=== PATIENT | male | born 1980 | race African-American/Black ===

== ENCOUNTER 2021-03-16 06:17 | Inpatient (IN) | payer OTHER ==
[~2021-03-16] VITALS: Ht 175.3 cm; Wt 83.0 kg
[~2021-03-16 06:17] MED LIST: BENADRYL ALLERG25 MG PO
[2021-03-16 06:25] VITALS: BP 125/77
[2021-03-16] MEDS ORDERED: NOHOMEMEDICATIONS (06:30)
[2021-03-16 06:53] LABS: ABSOLUTE NEUTROPHILS 3.1 thou/uL (1.4-8.2); BASOPHILS 0.9 % (0.0-2.0); EOSINOPHILS 0.2 % (0.0-3.0); HEMATOCRIT 36.2 % (42.0-52.0); HEMOGLOBIN 11.1 gm/dL (14.0-18.0); LYMPHOCYTES 24.9 % (24.0-44.0); MCH 21.3 pg (26.0-34.0); MCHC 30.7 g/dL (28.0-37.0); MCV 69.6 fL (80.0-100.0); MONOCYTES 15.6 % (1.0-8.0); PLATELET COUNT 565 thou/uL (150-400); POLYS 58.4 % (36.0-66.0); RBC 5.21 mil/uL (4.50-6.00); RDW 18.7 % (10.5-14.5); WBC 5.3 thou/uL (4.0-11.0)
--- NOTE | 2021-03-16 07:09 | NUR ---
TOOK OVER CARE FROM MARIA DE JESUS ZAVALA AT THIS TIME
[2021-03-16 07:11] LABS: ANION GAP 8 mmol/L (7-16); BUN 10 mg/dL (7-18); CALCIUM 8.7 mg/dL (8.5-10.1); CHLORIDE 104 mmol/L (98-107); CO2 31 mmol/L (21-32); CREATININE 1.4 mg/dL (0.7-1.3); GLUCOSE 131 mg/dL (74-106); POTASSIUM 3.9 mmol/L (3.5-5.1); SODIUM 143 mmol/L (136-145)
[2021-03-16 07:21] LABS: ALBUMIN 3.2 g/dL (3.4-5.0); SGOT 49 U/L (15-37); SGPT 49 U/L (16-63); TOTAL BILIRUBIN 0.5 mg/dL (0.2-1.0); TOTAL PROTEIN 8.1 g/dL (6.4-8.2); TROPONIN-I <0.06 ng/mL (<0.06)
--- NOTE | 2021-03-16 09:30 | EKG ---
[address] [address] ELECTROCARDIOGRAM REPORT Name: JULIO SORENSON Room #: [facility]#: [id number] Admission: 03/16/21 Attend Phys: Discharge: Date of : 78 Report #: [id number] [facility] ED Test Date: 2021-03-16 Test Time: 06:37:01 Pat Name: JULIO SORENSON Department: Room: Gender: M Manager Treasury: CARLOS ALBERTO : 1980 Requested By: Baudilio Jimenez Order Number: [id number] MD: Yuniel Panchal Measurements Intervals [place] Rate: 101 P: 69 NM: 130 QRS: 71 QRSD: 102 T: 1 QT: 343 QTc: 445 Interpretive Statements Sinus tachycardia Nonspecific T wave abnormalities No previous ECG available for comparison Electronically Signed On 03-16-2021 9:30:07 CDT by Yuniel Panchal [email or web address] <ELECTRONICALLY SIGNED> By: Yuniel Panchal MD 03/16/21 0930 0637 [id number] Yuniel Panchal MD /EPI
[2021-03-16 10:20] LABS: OVALOCYTES 1+; TARGET CELLS FEW
[2021-03-16 10:29] LABS: ANISOCYTOSIS 2+; MICROCYTES 3+; SCHISTOCYTES FEW
[2021-03-16 10:30] LABS: HYPOCHROMASIA 3+
[2021-03-17 05:45] LABS: HEMATOCRIT 32.3 % (42.0-52.0); HEMOGLOBIN 9.8 gm/dL (14.0-18.0); MCH 21.2 pg (26.0-34.0); MCHC 30.3 g/dL (28.0-37.0); MCV 70.1 fL (80.0-100.0); RBC 4.61 mil/uL (4.50-6.00); RDW 18.7 % (10.5-14.5); WBC 4.6 thou/uL (4.0-11.0)
[2021-03-17 05:55] LABS: ALBUMIN 2.8 g/dL (3.4-5.0); ANION GAP 7 mmol/L (7-16); BUN 12 mg/dL (7-18); CALCIUM 8.4 mg/dL (8.5-10.1); CHLORIDE 109 mmol/L (98-107); CO2 28 mmol/L (21-32); CREATININE 1.1 mg/dL (0.7-1.3); DIRECT BILIRUBIN < 0.1 mg/dL (<0.1-0.2); GLUCOSE 103 mg/dL (74-106); PHOSPHORUS 3.7 mg/dL (2.6-4.7); POTASSIUM 4.3 mmol/L (3.5-5.1); SGOT 72 U/L (15-37); SGPT 89 U/L (16-63); SODIUM 144 mmol/L (136-145); TOTAL BILIRUBIN 0.4 mg/dL (0.2-1.0); TOTAL PROTEIN 7.1 g/dL (6.4-8.2)
--- NOTE | 2021-03-17 06:00 | HC ---
[facility] [place] [address] CONSULTATION Name: JULIO SORENSON Room #: 170-6 ADM IN M.R.#: [id number] Admission: 03/16/21 Attend Phys: Juju Godinez MD Discharge: Date of : 78 Report #: [id number] THIS REPORT FOR: cc: FAM - No family physician/PCP FAM - No family physician/PCP César Hernandes MD ~ DATE OF SERVICE: 03/16/2021 INFECTIOUS DISEASE CONSULTATION ATTENDING PHYSICIAN: Dr. Godinez. REASON FOR EVALUATION: COVID-19 infection, complicated by pneumonitis, respiratory failure. HISTORY OF PRESENT ILLNESS: Chart reviewed and the patient was examined. This is a 40-year-old gentleman without significant medical history, who has been ill for roughly 10-11 days, noted to have a positive COVID testing, initially developed headaches, subsequently had some dyspnea, cough has been a prominent sign as well. Denies significant GI related complaints. However, the course of the last 12-24 hours had developed increasing difficulties breathing, in particular with any exertion. Evaluation in the ER noted patchy infiltrates, mildly elevated D-dimer prompted CT of the chest, which showed no evidence of pulmonary embolus. CBC showed anemia, notable in otherwise young man of 11.1, platelet count of 565, slightly elevated creatinine of 1.4. He was started empirically on ceftriaxone and azithromycin. ALLERGIES: LISTED TO PENICILLIN AND DOXYCYCLINE. CURRENT MEDICATIONS: Include dexamethasone, azithromycin, ceftriaxone, enoxaparin, p.r.n. acetaminophen. SOCIAL HISTORY: Denies any significant social history. FAMILY HISTORY: Available in chart. REVIEW OF SYSTEMS: Otherwise, unremarkable. PHYSICAL EXAMINATION: GENERAL: He is alert, cooperative. He is in moderate distress. LUNGS: Bilateral scattered crackles. HEART: Regular, tachycardic. I do not appreciate murmur. ABDOMEN: Soft, nontender. EXTREMITIES: No cyanosis. GENITOURINARY AND RECTAL: Deferred. [facility] [address] [place] [address] CONSULTATION Name: JLUIO SORENSON Room #: 1706 ADM IN [facility]#: [id number] Admission: 03/16/21 Attend Phys: Juju Godinez MD Discharge: Date of : 78 Report #: [id number] LABORATORY DATA: CBC: White count of 5.3, H and H 11.1 and 36.2, MCV is 69.6, may be of thalassemia, platelet count of 565. CT chest, no PE, patchy bilateral multifocal airspace infiltrates. D-dimer 0.37. Electrolytes: Sodium 143, potassium 3.9, chloride 104, bicarbonate 31, anion gap of 8, BUN and creatinine 10 and 1.4, AST 49, ALT of 49, albumin 3.2, total protein of 8.1, estimated GFR of 68. ASSESSMENT AND PLAN: COVID-19 pneumonia, complicated by pneumonitis and respiratory failure in the setting of a mesh in his perhaps chronic, but certainly Microcytic anemia. It is unclear if he has some underlying issue. So, at this point, may need evaluation. We will continue empiric therapy directed against coronavirus. We will add remdesivir, ivermectin, Actemra in addition to vitamins. He is on empiric therapy for possible secondary bacterial pneumonia given the duration of therapy, certainly could be a complication, remains somewhat tenuous. Continue to monitor expectantly. Oxygen therapy as required. <ELECTRONICALLY SIGNED> By: César Hernandes MD 03/17/21 0600 0939 00 César Hernandes MD /nt
[2021-03-17 13:10] LABS: % SATURATION 19 % (20-39); IRON 56 ug/dL (65-175); TIBC 298 ug/dL (250-450)
[2021-03-17 17:27] VITALS: BP 127/79
--- NOTE | 2021-03-17 17:31 | NUR ---
40-year-old male without significant past medical history presented to the ED on 03-16-21 for evaluation of difficulty breathing. Patient states that 11 days prior he was diagnosed with Covid and states that he has been having worsening difficulty breathing over the last few days. The patient has been admitted for: COVID-19 infection complicated by pneumonitis and respiratory failure/microcytic anemia/elevated LFTs likely secondary to coronavirus/malnutrition with hypoalbuminemia. Per ED Triage assessment listed as not vaccinated. The patient is down from 3 to 2 bo via ND. Per assessment and MD notes the patient remains A& O x4. The patient list Naomi Hermosillo as next of kin at [phone]. As plan of care and assessments by MD team are completed CM will follow for discharge needs.
[2021-03-17 17:58] VITALS: BP 124/80
[2021-03-17 19:45] VITALS: BP 122/80
[2021-03-17 19:55] LABS: FOLIC ACID 14.5 ng/mL (8.6-58.9)
[2021-03-17 21:26] LABS: HEMATOCRIT 36.2 % (42.0-52.0); HEMOGLOBIN 10.6 gm/dL (14.0-18.0)
[2021-03-18 00:10] VITALS: BP 116/82
[2021-03-18 05:31] VITALS: BP 110/78
[2021-03-18 05:58] LABS: ALBUMIN 2.8 g/dL (3.4-5.0); CALCIUM 8.2 mg/dL (8.5-10.1); CREATININE 0.7 mg/dL (0.7-1.3); DIRECT BILIRUBIN 0.1 mg/dL (<0.1-0.2); PHOSPHORUS 3.9 mg/dL (2.5-4.9); TOTAL BILIRUBIN 0.5 mg/dL (0.2-1.0); TOTAL PROTEIN 6.6 g/dL (6.4-8.2)
[2021-03-18 05:59] LABS: POTASSIUM 5.8 mmol/L (3.5-5.1)
--- NOTE | 2021-03-18 06:01 | NUR ---
PT ARRIVED FROM ER VIA CART, PLACED IN ROOM 360. ADMISSION ASSESSMENTS COMPLETED. ARRIVED ON O2 AT 3L PER NC. PT REPORT SOA W/ACTIVITY. IS ABLE TO SPEAK IN FULL SENTENCES WITHOUT SIGNIFIANT SOA. CONTINUE TO MONITOR.
[2021-03-18 07:42] VITALS: BP 131/87
[2021-03-18 11:38] VITALS: BP 135/89
--- NOTE | 2021-03-18 15:04 | NUR ---
INITIAL ASSESSMENT/DISCHARGE NOTE: SW reviewed chart and spoke with nursing and attending physician. Pt was admitted due to COVID. Pt placed in Enhanced Isolation. Pt has not received a COVID vaccine. Pt is afebrile and on room air. Per physicians, pt is medically stable to discharge home today. SW spoke with pt via phone. Introduced role of SW. Pt is alert/orientated x 4. Pt lives at home. Pt is normally independent with ADLs an does not use any DME. Pt states he has a PCP, but does not the physician's name, as his regular PCP just retired and is being assigned to a new PCP in the physician group. Pt's family to provide transportation home. No additional SW needs identified at this time, but is available to assist should needs arise.
[2021-03-18 15:08] LABS: HIV ANTIBODY Non Reactive (Non Reactive)
[2021-03-18 15:25] VITALS: BP 118/81
[2021-03-18] MEDS ORDERED: DEXAMETHASONE6 MG PO (16:29)
[2021-03-18 16:52] VITALS: BP 118/81
--- NOTE | 2021-03-18 18:41 | NUR ---
PT ON ROOM AIR NOW, DISCHARGE ORDERS. D/C INSTRUCTION, APPT AND NEW MED INFO GIVEN TO PT. IV AND TELE OUT. DENIES ANY QUESTIONS. PT TAKEN DOWN VIA WHEELCHAIR.
[2021-03-19 10:08] LABS: HAV IgM AB (ANTI-HAV IgM) Negative (Negative); HEPATITIS B SURFACE AG Negative (Negative); HEPATITIS C VIRUS AB <0.1 (0.0-0.9)
== END 2021-03-18 18:25 | disposition home or self-care (01) | DRG 177 ==
LOC: ER 06:17 → 3W 10:03 → EROBS 10:03 → 3W 03-17 18:40
PROVIDERS: Emergency Medicine; Specialist; ADMIT Hospitalist; ATTEND Hospitalist
PROC: XW033E5 Introduction of Remdesivir Anti-infective into Peripheral Vein, Percutaneous Approach, New Technology Group 5 (ICD-10-PCS; principal; 2021-03-16)
PROC: XW033H5 Introduction of Tocilizumab into Peripheral Vein, Percutaneous Approach, New Technology Group 5 (ICD-10-PCS; 2021-03-16)
DX: U07.1 COVID-19 (principal); J12.82 Pneumonia due to coronavirus disease 2019; J96.01 Acute respiratory failure with hypoxia; N17.9 Acute kidney failure, unspecified; E44.0 Moderate protein-calorie malnutrition; R74.01 Elevation of levels of liver transaminase levels; E88.09 Other disorders of plasma-protein metabolism, not elsewhere classified; D50.9 Iron deficiency anemia, unspecified; Z88.0 Allergy status to penicillin; Z88.1 Allergy status to other antibiotic agents; Z68.27 Body mass index [BMI] 27.0-27.9, adult
CPT/HCPCS: 10879